=== PATIENT | female | born 1995 | race Two or more races ===

== ENCOUNTER 2017-06-11 08:45 | Emergency (ER) | payer OTHER ==
[2017-06-11 08:59] VITALS: BP 116/74; PULSE 86; TEMP 98.4; BMI 26.5
[2017-06-11] MEDS ORDERED: IBUPROFEN 600 MG TABLET (FP) PO ONE (09:06)
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
== END 2017-06-11 09:24 | disposition home or self-care (01) ==
LOC: JERFT 08:45
DX: M79.601 Pain in right arm (principal); V73.6XXA Passenger on bus injured in collision with car, pick-up truck or van in traffic accident, initial encounter; Y93.89 Activity, other specified; Y92.410 Unspecified street and highway as the place of occurrence of the external cause; Y99.0 Civilian activity done for income or pay
CPT/HCPCS: 99281-25

== ENCOUNTER 2017-12-31 19:13 | Emergency (ER) | payer BC ==
--- NOTE | 2017-12-31 19:36 | PDOC ---
History of Present Illness - General History Source: Patient Exam Limitations: No Limitations - History of Present Illness Initial Comments: 12/31/17 19:50 The patient is a 22-year-old female with no significant past medical history presents to the emergency department with an enlarged lymph node. The patient presents with enlarged submandibular lymph nodes for the past 2 weeks, aggravated with palpation, no relief with Tylenol, last dose yesterday. The patient recalls being sick recently. 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 Denies a sore throat or night sweat. Denies a cough or a headache. Denies numbness, tingling or loss of sensation. Denies fever. Denies nausea or vomiting. Allergies: NKA PCP: [facility]. <Leeanne Hare - Last Filed: 12/31/17 19:55> - General History Source: Patient Exam Limitations: No Limitations <Roz Dalton - Last Filed: 01/12/18 18:45> - General Chief Complaint: Pain Stated Complaint: FEELS LUMP ON LEFT SIDE OF NECK FOR 2 WEEKS Past History <Leeanne Hare - Last Filed: 12/31/17 19:55> - Past Medical History Anemia: No Asthma: No Cancer: No Cardiac Disorders: No CVA: No COPD: No CHF: No Dementia: No Diabetes: No GI Disorders: No Disorders: No HTN: No Hypercholesterolemia: No Liver Disease: No Seizures: No Thyroid Disease: No - Surgical History Abdominal Surgery: No Appendectomy: No Cardiac Surgery: No Cholecystectomy: Yes Lung Surgery: No Neurologic Surgery: No Orthopedic Surgery: No - Immunization History Td Vaccination: Yes TDAP Vaccination: Yes Immunization Up to Date: Yes - Suicide/Smoking/Psychosocial Hx Smoking Status: No Smoking History: Never smoked Years of Tobacco Use: 0 Have you smoked in the past 12 months: No Number of Cigarettes Smoked Daily: 0 Cigars Per Day: 0 Information on smoking cessation initiated: No Hx Alcohol Use: Yes (SOCIAL) Drug/Substance Use Hx: No Substance Use Type: Alcohol Hx Substance Use Treatment: No <Roz Dalton - Last Filed: 01/12/18 18:45> - Past Medical History Allergies/Adverse Reactions: Allergies Allergy/AdvReac Type Severity Reaction Status Date / Time No Known Allergies Allergy Verified 12/31/17 19:15 Home Medications: Ambulatory Orders Clindamycin [Cleocin -] 300 mg PO Q6HPO #28 capsule 12/31/17 Review of Systems - Review of Systems Able to Perform ROS?: Yes Constitutional: No: Chills, Fever, Night Sweats HEENTM: Yes: Other ((+) submandibular lymph enlargement. ). No: Throat Pain, Throat Swelling, Difficulty Swallowing Respiratory: No: Shortness of Breath, Productive cough Cardiac (ROS): No: Chest Pain Musculoskeletal: No: Neck Pain Neurological: No: Headache, Paresthesia <Leeanne Hare - Last Filed: 12/31/17 19:55> - Review of Systems Able to Perform ROS?: Yes All Other Systems: Reviewed and Negative <Roz Dalton - Last Filed: 01/12/18 18:45> *Physical Exam - Vital Signs Last Vital Signs Temp Pulse Resp BP Pulse Ox 99 F 69 20 111/71 99 12/31/17 19:14 12/31/17 19:14 12/31/17 19:14 12/31/17 19:14 12/31/17 19:14 - Physical Exam Comments: 12/31/17 19:48 GENERAL: Awake, alert, and fully oriented, in no acute distress HEAD: No signs of trauma EYES: PERRLA, EOMI, sclera anicteric, conjunctiva clear ENT: (+) Posterior pharynx cobblestone. Auricles normal inspection, hearing grossly normal, nares patent, oropharynx clear without exudates. Moist mucosa NECK: L. Submandibular gland enlargement with tenderness with palpation. Normal ROM, supple, no JVD. LUNGS: Breath sounds equal, clear to auscultation bilaterally. No wheezes, and no crackles HEART: Regular rate and rhythm, normal S1 and S2, no murmurs, rubs or gallops ABDOMEN: Soft, nontender, normoactive bowel sounds. No guarding, no rebound. No masses EXTREMITIES: Normal range of motion, no edema. No clubbing or cyanosis. No cords, erythema, or tenderness NEUROLOGICAL: Cranial nerves II through XII grossly intact. Normal speech, normal gait SKIN: Warm, Dry, normal turgor, no rashes or lesions noted. <Leeanne Hare - Last Filed: 12/31/17 19:55> - Vital Signs Last Vital Signs Temp Pulse Resp BP Pulse Ox 99 F 69 20 111/71 99 12/31/17 19:14 12/31/17 19:14 12/31/17 19:14 12/31/17 19:14 12/31/17 19:14 <Roz Dalton - Last Filed: 01/12/18 18:45> ED Treatment Course - LABORATORY CBC & Chemistry Diagram: 12/31/17 19:50 <Leeanne Hare - Last Filed: 12/31/17 19:55> - LABORATORY CBC & Chemistry Diagram: 12/31/17 19:50 <Roz Dalton - Last Filed: 01/12/18 18:45> Medical Decision Making - Medical Decision Making 12/31/17 19:33 22 yo F here with c/o enlarged lymph node or lump on her throat. differential includes, reactive, vs. nonreactive. <Roz Dalton - Last Filed: 01/12/18 18:45> *DC/Admit/Observation/Transfer - Attestations Scribe Attestion: 12/31/17 19:55 Documentation prepared by Leeanne Hare, acting as medical front desk coordinator for Roz Dalton MD. <Leeanne Hare - Last Filed: 12/31/17 19:55> <Roz Dalton - Last Filed: 01/12/18 18:45> Diagnosis at time of Disposition: Sialoadenitis, unspecified - Discharge Dispostion Disposition: HOME Condition at time of disposition: Stable - Prescriptions Prescriptions: Clindamycin [Cleocin -] 300 mg PO Q6HPO #28 capsule - Patient Instructions Additional Instructions: Take clindamycin 1 tablet 4 times a day for one week. Get a probiotic or eats some yogurt with it as it will give you diarrhea. Follow-up with the ENT Dr. Corbin his phone number is [phone] call him in the morning to make an appointment. Return to the emergency department immediately with ANY new, persistent or worsening symptoms. Continue any medications as previously prescribed by your physician. You should follow up with your primary doctor as soon as possible regarding today's emergency department visit. . Please make sure your doctor reviews the results of your emergency evaluation. Thank you for coming to the Emergency Department today for your care. It was a pleasure to see you today. Please note that your evaluation is INCOMPLETE until you follow-up with your doctor.
[2017-12-31 19:48] VITALS: BP 111/71; PULSE 69; TEMP 99; BMI 27.4
[2017-12-31 20:02] LABS: BASO % 0.7 % (0-2.0); EOS % 4.5 % (0-4.5); HEMATOCRIT 37.8 % (32.4-45.2); HEMOGLOBIN 12.8 GM/dl (10.7-15.3); LYMPH % 40.9 % (8-40); MCH 31.9 pg (25.7-33.7); MCHC 33.9 g/dl (32.0-36.0); MEAN PLT VOLUME 8.4 fl (7.5-11.1); MONO % 7.5 % (3.8-10.2); NEUT % 46.4 % (42.8-82.8); PLATELET COUNT 283 K/MM3 (134-434); RBC 4.02 M/mm3 (3.60-5.2); RDW 12.6 % (11.6-15.6); WHITE BLOOD COUNT 7.4 K/mm3 (4.0-10.8)
[2017-12-31] MEDS ORDERED: CLINDAMYCIN HCL 300 MG CAPSULE PO ONE (20:12)
[2017-12-31] MEDS ORDERED: CLINDAMYCIN HCL 150 MG CAPSULE (FP) ONE (20:16)
--- NOTE | 2017-12-31 20:18 | PDOC ---
*Physical Exam - Vital Signs Last Vital Signs Temp Pulse Resp BP Pulse Ox 99 F 69 20 111/71 99 12/31/17 19:14 12/31/17 19:14 12/31/17 19:14 12/31/17 19:14 12/31/17 19:14 ED Treatment Course - LABORATORY CBC & Chemistry Diagram: 12/31/17 19:50 - ADDITIONAL ORDERS Additional order review: 12/31/17 19:50 RBC 4.02 MCV 94.0 MCHC 33.9 RDW 12.6 MPV 8.4 Neutrophils % 46.4 Lymphocytes % 40.9 H Monocytes % 7.5 Eosinophils % 4.5 Basophils % 0.7 Progress Note - Progress Note Progress Note: care of this patient was transferred to [place] from Dr. Marc at 1900 hrs. 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 Patient has a CBC pending. Will start patient on clindamycin and discharge provided CBC is not markedly elevated. *DC/Admit/Observation/Transfer Diagnosis at time of Disposition: Sialoadenitis, unspecified - Discharge Dispostion Disposition: HOME Condition at time of disposition: Stable Decision to Admit order: No - Prescriptions Prescriptions: Clindamycin [Cleocin -] 300 mg PO Q6HPO #28 capsule - Referrals - Patient Instructions Additional Instructions: Take clindamycin 1 tablet 4 times a day for one week. Get a probiotic or eats some yogurt with it as it will give you diarrhea. Follow-up with the ENT Dr. Corbin his phone number is [phone] call him in the morning to make an appointment. Return to the emergency department immediately with ANY new, persistent or worsening symptoms. Continue any medications as previously prescribed by your physician. You should follow up with your primary doctor as soon as possible regarding today's emergency department visit. . Please make sure your doctor reviews the results of your emergency evaluation. Thank you for coming to the Emergency Department today for your care. It was a pleasure to see you today. Please note that your evaluation is INCOMPLETE until you follow-up with your doctor. - Post Discharge Activity
== END 2017-12-31 20:23 | disposition home or self-care (01) ==
LOC: FER 19:13
DX: K11.20 Sialoadenitis, unspecified (principal)
CPT/HCPCS: 36415; 85025; 99281-25

== ENCOUNTER 2018-07-09 21:13 | Emergency (ER) | payer BC, OTHER ==
[2018-07-09 21:23] VITALS: BP 103/62; PULSE 84; TEMP 98.9; BMI 23.8
--- NOTE | 2018-07-09 21:25 | PDOC ---
History of Present Illness - General History Source: Patient Exam Limitations: No Limitations - History of Present Illness Initial Comments: 07/09/18 21:37 The patient is a 23 year old female, who presents to the ED complaining of anxiety and panic attacks. She states that she has been feeling anxious for a couple of days. Today she had a panic attack and went home to take a nap. Post nap she was still having the same symptoms and decided to come to the ED. She notes that she has had a panic attack in the past, as early as last year. She denies taking any medications for her anxiety or seeking professional therapy. The patient denies chest pain, shortness of breath, headache and dizziness. PAST MEDICAL HISTORY: no significant history PAST SURGICAL HISTORY: Cholecystectomy FAMILY HISTORY: no pertinent history SOCIAL HISTORY: Pt lives with family and is employed. MEDICATIONS: reviewed ALLERGIES: As per nursing notes GENERAL: The patient is awake, alert, and fully oriented, in no acute distress. HEAD: Normal with no signs of trauma. EYES: Pupils equal, round and reactive to light, extraocular movements intact, sclera anicteric, conjunctiva clear. EXTREMITIES: Normal range of motion, no edema. NEUROLOGICAL: Normal speech, normal gait. PSYCH: Normal mood, normal affect. SKIN: Warm, Dry, normal turgor, no rashes or lesions noted. <John Ricci - Last Filed: 07/09/18 21:37> - General History Source: Patient Exam Limitations: No Limitations - History of Present Illness Initial Comments: 07/09/18 21:45 A portion of this note was documented by scribe services under my direction. I have reviewed the details of the note, within reason, and agree with the documentation with the following case summary and management plan written by me. Patient treated in the ED. Nursing notes are reviewed and incorporated into the medical decision-making. Vital signs reviewed. Assessment and plan: This is a 23-year-old female who comes in complaining of anxiety. Patient is had one other episode of anxiety in the past proximally 1 month ago. Patient is unable to identify any precipitating factor with in her life. Patient has not sought any sort of therapy for the anxiety. Patient was given Xanax here in the ED. Discussed with patient treatment options for anxiety and did give her a few Xanax tablets that she can take until she is unable to secure some therapy if she continues to have recurrent anxiety. Patient discharged home <Breanna Barbosa I - Last Filed: 07/09/18 21:48> - General Chief Complaint: Psychiatric Stated Complaint: ANXIETY Time Seen by Provider: 07/09/18 21:19 Past History <John Ricci - Last Filed: 07/09/18 21:37> - Past Medical History Anemia: No Asthma: No Cancer: No Cardiac Disorders: No CVA: No COPD: No CHF: No Dementia: No Diabetes: No GI Disorders: No Disorders: No HTN: No Hypercholesterolemia: No Liver Disease: No Seizures: No Thyroid Disease: No - Surgical History Abdominal Surgery: No Appendectomy: No Cardiac Surgery: No Cholecystectomy: Yes Lung Surgery: No Neurologic Surgery: No Orthopedic Surgery: No - Immunization History Td Vaccination: Yes TDAP Vaccination: Yes Immunization Up to Date: Yes - Suicide/Smoking/Psychosocial Hx Smoking Status: No Smoking History: Never smoked Years of Tobacco Use: 0 Have you smoked in the past 12 months: No Number of Cigarettes Smoked Daily: 0 Cigars Per Day: 0 Hx Alcohol Use: Yes (SOCIAL) Drug/Substance Use Hx: No Substance Use Type: Alcohol Hx Substance Use Treatment: No <Breanna Barbosa I - Last Filed: 07/09/18 21:48> - Past Medical History Allergies/Adverse Reactions: Allergies Allergy/AdvReac Type Severity Reaction Status Date / Time No Known Allergies Allergy Verified 12/31/17 19:15 Home Medications: Ambulatory Orders Clindamycin [Cleocin -] 300 mg PO Q6HPO #28 capsule 12/31/17 Alprazolam [Xanax] 0.5 mg PO DAILY PRN #5 tablet MDD 1 07/09/18 *Physical Exam - Vital Signs Last Vital Signs Temp Pulse Resp BP Pulse Ox 98.9 F 84 14 103/62 98 07/09/18 21:19 07/09/18 21:19 07/09/18 21:19 07/09/18 21:19 07/09/18 21:19 <John Ricci - Last Filed: 07/09/18 21:37> Moderate Sedation - Procedure Monitoring Vital Signs: Procedure Monitoring Vital Signs Temperature 98.9 F 07/09/18 21:19 Pulse Rate 84 07/09/18 21:19 Respiratory Rate 14 07/09/18 21:19 Blood Pressure 103/62 07/09/18 21:19 O2 Sat by Pulse Oximetry (%) 98 07/09/18 21:19 <John Ricci - Last Filed: 07/09/18 21:37> ED Treatment Course - Medications Given in the ED: ED Medications Discontinued Medications Generic Name Dose Route Start Last Admin Trade Name Freq PRN Reason Stop Dose Admin Alprazolam 0.5 mg 07/09/18 21:32 07/09/18 21:35 Xanax - PO 07/09/18 21:33 0.5 mg ONCE STA Administration <John Ricci - Last Filed: 07/09/18 21:37> *DC/Admit/Observation/Transfer - Attestations Scribe Attestion: 07/09/18 21:37 Documentation prepared by John Ricci, acting as medical practice administrator for Breanna Barbosa MD <John Ricci - Last Filed: 07/09/18 21:37> - Discharge Dispostion Decision to Admit order: No <Breanna Barbosa I - Last Filed: 07/09/18 21:48> Diagnosis at time of Disposition: Anxiety - Discharge Dispostion Disposition: HOME Condition at time of disposition: Good - Prescriptions Prescriptions: Alprazolam [Xanax] 0.5 mg PO DAILY PRN #5 tablet MDD 1 PRN Reason: Anxiety - Patient Instructions Additional Instructions: I sent a prescription to your pharmacy for a few tablets for anxiety. Limit taking them 2 times one you are feeling very anxious and are unable to function as result your anxiety. If her anxiety becomes frequent or you find difficulty being able to do with your anxiety it is important that you find a therapist that you can talk to to help you with your anxiety. Return to the emergency department immediately with ANY new, persistent or worsening symptoms. Continue any medications as previously prescribed by your physician. You should follow up with your primary doctor as soon as possible regarding today's emergency department visit. . Please make sure your doctor reviews the results of your emergency evaluation. Thank you for coming to the Emergency Department today for your care. It was a pleasure to see you today. Please note that your evaluation is INCOMPLETE until you follow-up with your doctor.
[2018-07-09] MEDS ORDERED: ALPRAZolam 0.25 MG TABLET PO STA (21:32)
[2018-07-09] MEDS ORDERED: ALPRAZolam 0.25 MG TABLET ONE (21:34)
== END 2018-07-09 21:51 | disposition home or self-care (01) ==
LOC: FER 21:13
DX: F41.9 Anxiety disorder, unspecified (principal)
CPT/HCPCS: 99282-25

== ENCOUNTER 2021-11-04 15:24 | Emergency (ER) | payer OTHER ==
[2021-11-04 15:41] VITALS: BP 110/73; PULSE 75; TEMP 98.6; BMI 30.2
[2021-11-04] MEDS ORDERED: SODIUM CHLORIDE 1,000 ML IV ONE (16:01)
[2021-11-04 16:47] LABS: HEMATOCRIT 38.6 % (32.4-45.2); HEMOGLOBIN 13.6 G/dL (10.7-15.3); MCH 32.6 pg (25.7-33.7); MCHC 35.3 g/dl (32.0-36.0); MEAN CELL VOLUME 92.5 fl (80-96); MEAN PLT VOLUME 8.1 fl (7.5-11.1); PLATELET COUNT 268.3 10^3/uL (134-434); RBC 4.17 10^6/uL (3.60-5.2); RDW 13.3 % (11.6-15.6)
[2021-11-04 16:50] LABS: ALBUMIN 3.6 g/dl (3.4-5.0); BILIRUBIN,TOTAL 0.6 mg/dl (0.2-1); CALCIUM 8.8 mg/dl (8.5-10); CREATININE 0.5 mg/dl (0.55-1.3)
[2021-11-04 17:07] LABS: PLATELET ESTIMATE ADEQUATE
== END 2021-11-04 17:55 | disposition home or self-care (01) ==
LOC: FER 15:24
PROC: 3E0337Z Introduction of Electrolytic and Water Balance Substance into Peripheral Vein, Percutaneous Approach (ICD-10-PCS; principal; 2021-11-04)
DX: R10.30 Lower abdominal pain, unspecified (principal); R19.7 Diarrhea, unspecified
CPT/HCPCS: 36415; 80053; 84703; 85025; 99284-25

== ENCOUNTER 2022-08-07 07:12 | Emergency (ER) | payer OTHER ==
[2022-08-07 07:22] VITALS: BP 122/84; PULSE 79; RESP 18; TEMP 98.1; BMI 30.2
[2022-08-07] MEDS ORDERED: IBUPROFEN 400 MG TABLET (FP) PO ONE ×2 (07:34→07:55)
== END 2022-08-07 09:00 | disposition home or self-care (01) ==
LOC: JER 07:12 → JERFT 07:12
DX: R51.9 Headache, unspecified (principal); M54.2 Cervicalgia; M25.512 Pain in left shoulder; V43.52XA Car driver injured in collision with other type car in traffic accident, initial encounter
CPT/HCPCS: 99283-25

== ENCOUNTER 2022-11-20 15:13 | Emergency (ER) | payer OTHER ==
[2022-11-20] MEDS ORDERED: IBUPROFEN 600 MG TABLET (FP) PO ONE ×2 (15:21→15:32)
[2022-11-20 15:31] VITALS: BP 121/77; PULSE 87; RESP 18; TEMP 98.9; BMI 30.2
== END 2022-11-20 16:20 | disposition home or self-care (01) ==
LOC: FER 15:13
DX: S93.402A Sprain of unspecified ligament of left ankle, initial encounter (principal); X50.1XXA Overexertion from prolonged static or awkward postures, initial encounter
CPT/HCPCS: 73610-TC-LT-FY; 99283-25